=== PATIENT | male | born 1950 | race Caucasian/White ===

== ENCOUNTER 2016-07-10 17:11 | Outpatient (CLI) | payer OTHER ==
--- NOTE | 2016-07-10 17:41 | DIAGNOSTIC IMAGING REPORT ---
PROCEDURE: XR SHOULDER 2 OR MORE VIEW B/L INDICATION: SHOULDER PAIN TECHNIQUE: Three views each shoulder. COMPARISON: None available FINDINGS: Osseous structures and joint spaces are normal. There is internal and external rotation without fracture or dislocation. IMPRESSION: 1. Normal right shoulder. 2. Normal left shoulder
== END 2016-07-10 23:00 ==
LOC: XR SRH 17:11
DX: M25.512 Pain in left shoulder (principal)